=== PATIENT | female | born 1935 | race Caucasian/White ===

== ENCOUNTER 2018-09-18 02:29 | Emergency (ER) | payer MEDICARE, OTHER ==
--- NOTE | 2018-09-18 05:00 | ED Physician Documentation ---
General Adult - HISTORIAN Historian: patient, paramedics - [facility] Stated Complaint: Hypoglycemic Chief Complaint: General Adult Further Comments: yes (83 year old female patient sent in from retirement with complaint of hypoglycemia. Patient was given D10 bolus in route to ER. On arrival patient was awake, able to eat small meal.) - ROS CONST: weakness EYES/ENT: none CVS/RESP: none GI/: none MS/SKIN/LYMPH: none NEURO/PSYCH: denies: headache - PAST HX Past History: other (Parkinson's, hypertension, depression, chronic constipation) Allergies/Adverse Reactions: Allergies Allergy/AdvReac Type Severity Reaction Status Date / Time latex Allergy Mild Verified 09/18/18 03:16 metoclopramide [From Reglan] Allergy Mild Verified 09/18/18 03:16 morphine Allergy Mild Verified 09/18/18 03:15 simvastatin [From Zocor] Allergy Mild Verified 09/18/18 03:16 Home Medications: Ambulatory Orders Medication Instructions Recorded Acetaminophen [Tylenol] 325 mg PO QID 09/18/18 Ascorbic Acid 500 mg PO BID 09/18/18 Aspirin 81 mg PO DAILY 09/18/18 Bisacodyl [Laxative] 10 mg PO DAILY 09/18/18 Buspirone HCl [Buspar] 15 mg PO DAILY 09/18/18 Carbidopa/Levodopa [Carbidopa-Levo 1 tab PO QID 09/18/18 25-100 mg Odt] Carvedilol [Coreg] 25 mg PO BID 09/18/18 Citalopram Hydrobromide 20 mg PO DAILY 09/18/18 [Citalopram HBr] Docusate Sodium [Colace] 100 mg PO BID 09/18/18 Donepezil HCl [Aricept] 10 mg PO HS 09/18/18 Estrogens, Conjugated [Premarin] 0.5 gm .ROUTE [id number] 09/18/18 Gabapentin [Neurontin] 300 mg PO BID 09/18/18 Guaifenesin [Mucinex] 600 mg PO 12 09/18/18 Ibuprofen 400 mg PO QID 09/18/18 Insulin NPH Human Isophane 28 units SQ AM 09/18/18 [Humulin N] Insulin Regular, Human [Novolin R] 28 units SQ PM 09/18/18 Insulin Regular, Human [Novolin R] 100 units SQ AC15 09/18/18 Nitrofurantoin Macrocrystal 50 mg PO DAILY 09/18/18 [Macrodantin] Nitrofurantoin Monohyd/M-Cryst 100 mg PO BID MDD x 10 days up 09/18/18 [Macrobid 100 mg Capsule] 09/22/18 Nystatin Powder [Nystop] 1 appl .ROUTE BID 09/18/18 Ondansetron [Zuplenz] 4 mg PO Q12 09/18/18 Pregabalin [Lyrica] 75 mg PO DAILY 09/18/18 Pregabalin [Lyrica] 150 mg PO HS 09/18/18 Rivaroxaban [Xarelto] 15 mg PO DAILY 09/18/18 - SOCIAL HX Smoking History: non-smoker - FAMILY HX Family History: No - VITAL SIGNS Vital Signs: Vital Signs Temp Pulse Resp BP Pulse Ox 99.1 F 64 12 101/60 94 09/18/18 02:47 09/18/18 02:47 09/18/18 02:47 09/18/18 02:47 09/18/18 02:47 - REVIEWED ASSESSMENTS Nursing Assessment Reviewed: Yes Vitals Reviewed: Yes ED Results Lab/Radiology - Orders Orders: ED Orders Category Date Time Status CBC/PLATELET/DIFF Stat Lab 09/18/18 03:16 Received CMP Stat Lab 09/18/18 03:16 Received URINALYSIS Stat Lab 09/18/18 03:12 Ordered Chem Sticks Med 09/18/18 07:30 Ordered 1 each [facility] [id number] General Adult Physical Exam - PHYSICAL EXAM GENERAL APPEARANCE: [id number] N EENT: eye inspection normal, MIKE RESPIRATORY: no resp distress CVS: reg rate & rhythm, heart sounds normal, equal pulses, no murmur, no gallop, PMI nml, no JVD, no friction rub, 24 ABDOMEN: soft SKIN: normal color, warm/dry, NR, INT, PAL, DR EXTREMITIES: non-tender, normal range of motion, no evidence of injury, no edema, J, PROJECT ANALYST NEURO: oriented X3, motor nml, sensation nml Discharge Clincal Impression: Hypoglycemia Referrals: Jaydon Shaikh DO [Primary Care Provider] - 2 Days Condition: Stable Disposition: 01 HOME, SELF-CARE Decision to Admit: NO Decision Time: 04:59
[2018-09-18 05:28] VITALS: BP 112/43
[2018-09-18 07:04] LABS: BASOPHILS % 0.4 (0.0-1.5); EOSINOPHILS % 2.2 % (0.0-6.8); MEAN CORPUSCULAR HEMOGLOBIN 29.5 pg (28.0-34.0); MONOCYTES % 5.4 % (0.0-11.0)
[2018-09-18 07:05] LABS: eGFR (Non-African) > 60
[2018-09-18 07:08] LABS: APPEARANCE,URINE CLEAR (CLEAR); COLOR,URINE YELLOW (YELLOW); OCCULT BLOOD,URINE NEGATIVE (NEGATIVE); PH URINE 6.5 (5.0 - 8.0)
== END 2018-09-18 05:20 | disposition home or self-care (01) ==
LOC: ED 02:29
DX: E16.2 Hypoglycemia, unspecified (principal)
CPT/HCPCS: 36415; 51701; 80053; 81002; 85025; 99282; 99283

== ENCOUNTER 2019-01-06 07:21 | Outpatient (CLI) | payer MEDICARE, OTHER ==
[2019-01-06 07:33] LABS: APPEARANCE,URINE CLEAR (CLEAR); COLOR,URINE YELLOW (YELLOW); OCCULT BLOOD,URINE NEGATIVE (NEGATIVE); UROBILINOGEN URINE 0.2 Eu (0.2-1.0)
== END 2019-01-06 07:23 ==
LOC: LAB 07:21
PROVIDERS: ATTEND Nurse Practitioner Family
DX: N39.0 Urinary tract infection, site not specified (principal)
CPT/HCPCS: 81002; 87086

== ENCOUNTER 2019-03-12 19:48 | Outpatient (CLI) | payer MEDICARE, OTHER | END 2019-03-12 19:50 | LOC: LAB 19:48 | PROVIDERS: ATTEND Nurse Practitioner Family | DX: K13.79 Other lesions of oral mucosa (principal); B37.0 Candidal stomatitis; R21 Rash and other nonspecific skin eruption | CPT/HCPCS: 87070; 87102 ==

== ENCOUNTER 2019-03-21 06:20 | Outpatient (CLI) | payer MEDICARE, OTHER ==
[2019-03-21 08:54] LABS: eGFR (Non-African) > 60
[2019-03-21 08:55] LABS: A1C 7.9 % (<5.7)
== END 2019-03-21 06:23 ==
LOC: LAB 06:20
PROVIDERS: ATTEND Nurse Practitioner Family
DX: E11.8 Type 2 diabetes mellitus with unspecified complications (principal); E03.9 Hypothyroidism, unspecified; G20 Parkinson's disease; E55.9 Vitamin D deficiency, unspecified; Z79.899 Other long term (current) drug therapy
CPT/HCPCS: 36415; 80053; 82306; 82607; 82746; 83036; 83921; 84439; 84443; P9603

== ENCOUNTER 2019-07-09 19:21 | Outpatient (CLI) | payer MEDICARE, OTHER ==
[2019-07-09 20:13] LABS: APPEARANCE,URINE CLOUDY (CLEAR); OCCULT BLOOD,URINE NEGATIVE (NEGATIVE); PH URINE 5.5 (5.0 - 8.0)
[2019-07-09 20:14] LABS: COLOR,URINE DARK YELLOW (YELLOW)
== END 2019-07-09 19:26 ==
LOC: LAB 19:21
PROVIDERS: ATTEND Nurse Practitioner Family
DX: N39.0 Urinary tract infection, site not specified (principal)
CPT/HCPCS: 81002; 87086